=== PATIENT | male | born 1965 | race African-American/Black ===

== ENCOUNTER 2016-06-12 22:54 | Emergency (ER) | payer OTHER ==
[~2016-06-12] VITALS: Ht 182.9 cm; Wt 84.4 kg
--- NOTE | ~2016-06-12 | EKG ---
[address] [address] ELECTROCARDIOGRAM REPORT Name: CANDIDO GARRIDO [facility]: [id number] Admission: 06/12/16 Attend Phys: Discharge: 06/13/16 Date of : 67 Report #: [id number] THIS REPORT FOR: //name// [facility] ED Test Date: 2016-06-12 Test Time: 23:00:45 Pat Name: CANDIDO GARRIDO Department: Room: TRIAGE Gender: M Telemetry Rn: CHRISTEN : 1965 Requested By: Order Number: [id number] MD: Deacon Prieto Measurements Intervals [place] Rate: 57 P: -9 MI: 124 QRS: 65 QRSD: 90 T: 21 QT: 407 QTc: 397 Interpretive Statements Sinus rhythm No previous ECG available for comparison Electronically Signed On 06-14-2016 16:03:32 DENTAL CHAIRSIDE ASSISTANT by Deacon Prieto [email or web address] <ELECTRONICALLY SIGNED> By: Deacon Prieto MD 06/14/16 1603 2300 2300 Deacon Prieto MD /EPI
--- NOTE | ~2016-06-12 | EKG ---
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 : 1965 Requested By: Abdelrahman Snow Order Number: [id number] MD: Mp Ambriz Measurements Intervals [place] Rate: 57 P: -9 [place]: 124 QRS: 65 QRSD: 90 T: 21 QT: 407 QTc: 397 Interpretive Statements Sinus rhythm Electronically Signed On 06-14-2016 16:03:32 HANDER IN by Deacon Prieto No previous ECG available for comparison Electronically Signed On 06-17-2016 7:44:03 HANDER IN by Mp Ambriz [email or web address] <ELECTRONICALLY SIGNED> By: Mp Ambriz MD, [facility] 06/17/16 0744 D: 01/2299 99 Mp Ambriz MD, FACC /EPI
[~2016-06-12 22:54] MED LIST: NOHOMEMEDICATIONS
[2016-06-13 00:16] LABS: ABSOLUTE NEUTROPHILS 3.5 thou/uL (1.4-8.2); BASOPHILS 0.7 % (0.0-2.0); EOSINOPHILS 0.6 % (0.0-3.0); HEMATOCRIT 42.2 % (42.0-52.0); HEMOGLOBIN 14.5 gm/dL (14.0-18.0); MANUAL DIFF NO; MCH 33.9 pg (26.0-34.0); MCHC 34.3 % (28.0-37.0); MCV 98.8 fL (80.0-100.0); MONOCYTES 8.7 % (1.0-8.0); PLATELET COUNT 142 thou/uL (150-400); RBC 4.27 mil/uL (4.50-6.00); RDW 13.5 % (10.5-14.5); WBC 5.2 thou/uL (4.0-11.0)
[2016-06-13 00:28] LABS: ANION GAP 3 mmol/L (7-16); BUN 14 mg/dL (7-18); CALCIUM 8.7 mg/dL (8.5-10.1); CHLORIDE 105 mmol/L (98-107); CO2 31 mmol/L (21-32); CREATININE 1.1 mg/dL (0.6-1.3); GLUCOSE 143 mg/dL (70-99); POTASSIUM 4.1 mmol/L (3.5-5.1); SODIUM 139 mmol/L (136-145)
[2016-06-13 00:46] LABS: ALBUMIN 3.5 g/dL (3.4-5.0); ALKALINE PHOSPHATASE 39 U/L (46-116); CK-MB MASS 0.7 ng/mL (<0.5-3.6); MAGNESIUM 2.1 mg/dL (1.8-2.4); SGOT 25 U/L (15-37); SGPT 28 U/L (30-65); TOTAL BILIRUBIN 0.3 mg/dL (<0.1-1.0); TOTAL PROTEIN 7.2 g/dL (6.4-8.2); TROPONIN-I < 0.04 ng/mL (<0.04-0.07)
[2016-06-13 01:08] VITALS: BP 106/62
[2016-06-13 02:23] LABS: AMP/METHAMP Negative (Negative); BARBITURATES Negative (Negative); BENZODIAZEPINES Negative (Negative); COCAINE Negative (Negative); METHADONE Negative (Negative); OPIATES Negative (Negative); PCP Negative (Negative); THC POSITIVE (Negative)
== END 2016-06-13 01:05 | disposition home or self-care (01) ==
LOC: ER 22:54
PROVIDERS: Emergency Medicine
DX: R55 Syncope and collapse (principal); S01.21XA Laceration without foreign body of nose, initial encounter; I10 Essential (primary) hypertension; Z88.0 Allergy status to penicillin; Z88.1 Allergy status to other antibiotic agents; F17.210 Nicotine dependence, cigarettes, uncomplicated; F12.10 Cannabis abuse, uncomplicated; W19.XXXA Unspecified fall, initial encounter; Y93.89 Activity, other specified; Y92.002 Bathroom of unspecified non-institutional (private) residence as the place of occurrence of the external cause; Y99.8 Other external cause status